=== PATIENT | female | born 1985 | race Caucasian/White ===

== ENCOUNTER 2018-10-15 07:56 | Emergency (ER) | payer OTHER ==
--- OUTSIDE RECORDS SUMMARY | 2018-10-15 08:01 | XMS REPORT ---
:1985 [facility] Address [address] [place] [address] Dr. Miner. [address] [place] [id number] Care Team Providers Name Role Phone Unavailable Unavailable Unavailable Problems This patient has no known problems. Allergies, Adverse Reactions, Alerts This patient has no known allergies or adverse reactions. Medications This patient has no known medications.
[2018-10-15 08:48] LABS: Absolute Lymphocytes (CBC) 1.5 K/uL (0.7-4.9); Absolute Monocytes 0.5 K/uL (0.1-1.3); Absolute Neutrophil 5.3 K/uL (1.8-8.0); Basophils % 0.4 % (0-1.3); Eosinophils % 2.7 % (0-4.4); Hematocrit 42.7 % (36.0-45.0); Lymphocytes % 20.2 % (15.3-44.8); MCH 30.8 pg (27.0-35.0); MCV 88.8 fL (80-100); MPV 8.6 fL (7.6-11.3); Monocytes % 6.1 % (3.3-12.3); RBC Red Blood Cell Count 4.81 M/uL (3.86-4.86)
[2018-10-15 09:11] LABS: Albumin 4.2 g/dL (3.4-5.0); Bilirubin Direct 0.1 mg/dL (0-0.2); Bilirubin Total 0.5 mg/dL (0.2-1.0); Potassium 3.3 mmol/L (3.5-5.1); Protein, Total 8.2 g/dL (6.4-8.2)
--- NOTE | 2018-10-15 09:16 | RAD REPORT ---
EXAM DESCRIPTION: US - Abdomen Exam Limited - 10/15/2018 8:49 am CLINICAL HISTORY: ABD PAIN COMPARISON: No comparisons FINDINGS: The gallbladder demonstrates no gallstones. No pericholecystic fluid or gallbladder wall t hickening. The common bile duct is normal measuring 3 mm. The liver demonstrates no findings of intrahepatic biliary dilatation. IMPRESSION: Unremarkable examination.
[2018-10-15] MEDS ORDERED: POTASSIUM CL SA 10 MEQ TAB PO ONE (09:32)
[2018-10-15] MEDS ORDERED: DICYCLOMINE HCL 10 MG CAP ONE (09:33)
--- NOTE | 2018-10-15 09:34 | EDPHYS ---
Physician Documentation [facility] Name: Niko aGrcia Age: 33 yrs Sex: Female : 1985 Arrival Date: 10/15/2018 Time: 08:00 Bed 7 Private MD: out of town, doctor ED Physician Baldomero Neves HPI: 10/15 09:28 This 33 yrs old Female presents to ER via Ambulatory with complaints of kb Abdominal Cramping. 09:28 The patient presents with abdominal pain in the upper abdomen. Onset: The kb symptoms/episode began/occurred 5 day(s) ago. The symptoms do not radiate. Associated signs and symptoms: none. The symptoms are described as crampy. Modifying factors: The symptoms are alleviated by bland food (toast). the symptoms are aggravated by "heavy food. Severity of pain: At its worst the pain was severe in the emergency department the pain has improved moderately. The patient has not experienced similar symptoms in the past. The patient has not recently seen a physician. Pt reports lower abd cramps since that moved to upper abd on . 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 - Social history:: Smoking status: Patient/guardian denies using tobacco, Patient uses alcohol, occasionally. - Ebola Screening: : Patient negative for fever greater than or equal to 101.5 degrees Fahrenheit, and additional compatible Ebola Virus Disease symptoms Patient denies exposure to infectious person Patient denies travel to an Ebola-affected area in the 21 days before illness onset. ROS: 09:24 Constitutional: Negative for fever, chills, and weight loss, ENT: Negative for injury, kb pain, and discharge, Neck: Negative for injury, pain, and swelling, Cardiovascular: Negative for chest pain, palpitations, and edema, Respiratory: Negative for shortness of breath, cough, wheezing, and pleuritic chest pain, Back: Negative for injury and pain, : Negative for injury, bleeding, discharge, and swelling, MS/Extremity: Negative for injury and deformity, Skin: Negative for injury, rash, and discoloration, Neuro: Negative for headache, weakness, numbness, tingling, and seizure. 09:24 Abdomen/GI: Positive for abdominal pain, nausea, abdominal cramps, Negative for vomiting, diarrhea, constipation, abdominal distension, anorexia. Exam: 09:24 Constitutional: This is a well developed, well nourished patient who is awake, alert, kb and in no acute distress. Head/Face: Normocephalic, atraumatic. Chest/axilla: Normal chest wall appearance and motion. Nontender with no deformity. No lesions are appreciated. Cardiovascular: Regular rate and rhythm with a normal S1 and S2. No gallops, murmurs, or rubs. Normal PMI, no JVD. No pulse deficits. Respiratory: Lungs have equal breath sounds bilaterally, clear to auscultation and percussion. No rales, rhonchi or wheezes noted. No increased work of breathing, no retractions or nasal flaring. Back: No spinal tenderness. No costovertebral tenderness. Full range of motion. Skin: Warm, dry with normal turgor. Normal color with no rashes, no lesions, and no evidence of cellulitis. MS/ Extremity: Pulses equal, no cyanosis. Neurovascular intact. Full, normal range of motion. Neuro: Awake and alert, GCS 15, oriented to person, place, time, and situation. Cranial nerves II-XII grossly intact. Motor strength 5/5 in all extremities. Sensory grossly intact. Cerebellar exam normal. Normal gait. 09:24 Abdomen/GI: Inspection: abdomen appears normal, Bowel sounds: normal, in all quadrants, Palpation: soft, in all quadrants, mild abdominal tenderness, in the right upper quadrant. Vital Signs: 08:06 BP 111 / 78; Pulse 69; Resp 18; Temp 97.5(TE); Pulse Ox 99% on R/A; Weight 68.04 kg; hj Height 5 ft. 4 in. (162.56 cm); Pain 4/10; 08:06 Body Mass Index 25.75 (68.04 kg, 162.56 cm) MDM: 08:08 Patient medically screened. kb 09:28 Data reviewed: vital signs, nurses notes. Data interpreted: Pulse oximetry: on room air kb is 99 %. Interpretation: normal. Counseling: I had a detailed discussion with the patient and/or guardian regarding: the historical points, exam findings, and any diagnostic results supporting the discharge/admit diagnosis, lab results, radiology results, the need for outpatient follow up, a family practitioner, a overnight cashier, to return to the emergency department if symptoms worsen or persist or if there are any questions or concerns that arise at home. 10/15 08:21 Order name: Basic Metabolic Panel; Complete Time: 09:14 kb 10/15 08:21 Order name: CBC with Diff; Complete Time: 08:51 kb 10/15 08:21 Order name: Hepatic Function; Complete Time: 09:14 kb 10/15 08:21 Order name: Lipase; Complete Time: 09:14 kb 10/15 09:10 Order name: Urine Dipstick--Ancillary (enter results) eb 10/15 09:10 Order name: Urine --Ancillary (enter results) eb 10/15 08:21 Order name: IV Saline Lock; Complete Time: 08:37 kb 10/15 08:21 Order name: Labs collected and sent; Complete Time: 08:37 kb 10/15 08:21 Order name: US Abdomen Limited; Complete Time: 09:19 kb 10/15 08:21 Order name: Urine Dipstick-Ancillary (obtain specimen); Complete Time: 09:35 kb Administered Medications: 09:32 Drug: Bentyl 20 mg Route: PO; sg 10:05 Follow up: Response: No adverse reaction; Marked relief of symptoms sg 09:32 Drug: Potassium Chloride 20 mEq Route: PO; sg 10:05 Follow up: Response: No adverse reaction sg Disposition: 16:57 Co-signature as Attending Physician, Baldomero Neves MD. rn Disposition: 10/15/18 09:32 Discharged to Home. Impression: Upper abdominal pain, unspecified. - Condition is Stable. - Discharge Instructions: Abdominal Pain, Adult, [id number]. - Prescriptions for Bentyl 20 mg Oral Tablet - take 1 tablet by ORAL route every 6 hours As needed; 20 tablet. - Medication Reconciliation Form, Thank You Letter, Antibiotic Education, Prescription Opioid Use, Work release form form. - Follow up: Private Physician; When: 2 - 3 days; Reason: Recheck today's complaints, Continuance of care, Re-evaluation by your physician. Follow up: Emergency Department; When: As needed; Reason: Worsening of condition. Signatures: Dispatcher [employer] EDMS Louisa Mendoza, SOHAIL VERGARA-Vincent Duvall RN RN Baldomero Flaherty MD MD rn Joaquin, Henry, RN RN Corrections: (The following items were deleted from the chart) 09:55 09:32 10/15/2018 09:32 Discharged to Home. Impression: Upper abdominal pain, sg unspecified. Condition is Stable. Forms are Medication Reconciliation Form, Thank You Letter, Antibiotic Education, Prescription Opioid Use. Follow up: Private Physician; When: 2 - 3 days; Reason: Recheck today's complaints, Continuance of care, Re-evaluation by your physician. Follow up: Emergency Department; When: As needed; Reason: Worsening of condition. kb
--- NOTE | 2018-10-15 09:34 | ER ---
Nurse's Notes [facility] Name: Niko Garcia Age: 33 yrs Sex: Female : 1985 Arrival Date: 10/15/2018 Time: 08:00 Bed 7 Private MD: out of town, doctor Diagnosis: Upper abdominal pain, unspecified Presentation: 10/15 08:01 Presenting complaint: Patient states: "i have the worst abd cramps in my life (started hj at lower abdomen and moves up the epigastric area) since , the pain is more intense that labor pains when the actual cramping happens, current pain is 4/10":, reports vomiting from the pain; reports constipation; denies fever and chills;. Transition of care: patient was not received from another setting of care. Onset of symptoms was October 15, 2018. Risk Assessment: Do you want to hurt yourself or someone else? Patient reports no desire to harm self or others. Initial Sepsis Screen: Does the patient meet any 2 criteria? No. Patient's initial sepsis screen is negative. Does the patient have a suspected source of infection? No. Patient's initial sepsis screen is negative. Care prior to arrival: None. 08:01 Method Of Arrival: Ambulatory 08:01 Acuity: HENNY 3 hj Triage Assessment: 08:05 General: Appears in no apparent distress. uncomfortable, Behavior is calm, cooperative, hj appropriate for age. Pain: Complains of pain in abdomen. GI: Reports vomiting. 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 - Social history:: Smoking status: Patient/guardian denies using tobacco, Patient uses alcohol, occasionally. - Ebola Screening: : Patient negative for fever greater than or equal to 101.5 degrees Fahrenheit, and additional compatible Ebola Virus Disease symptoms Patient denies exposure to infectious person Patient denies travel to an Ebola-affected area in the 21 days before illness onset. Screenin:06 Abuse screen: Denies threats or abuse. Denies injuries from another. Nutritional hj screening: No deficits noted. Tuberculosis screening: No symptoms or risk factors identified. Fall Risk None identified. Assessment: 08:06 GI: Bowel sounds present X 4 quads. Abd is soft and non tender. hj 08:30 Reassessment: Patient appears in no apparent distress at this time. Patient and/or sg family updated on plan of care and expected duration. Pain level reassessed. Patient is alert, oriented x 3, equal unlabored respirations, skin warm/dry/pink. Vital Signs: 08:06 BP 111 / 78; Pulse 69; Resp 18; Temp 97.5(TE); Pulse Ox 99% on R/A; Weight 68.04 kg; hj Height 5 ft. 4 in. (162.56 cm); Pain 4/10; 08:06 Body Mass Index 25.75 (68.04 kg, 162.56 cm) hj ED Course: 08:00 Patient arrived in ED. sb2 08:00 out of town, doctor is Private Physician. sb2 08:01 Louisa Mendoza FNP-C is PHCP. kb 08:01 Baldomero Neves MD is Attending Physician. kb 08:04 Triage completed. hj 08:06 Arm band placed on left wrist. hj 08:08 Patient has correct armband on for positive identification. Placed in gown. Bed in low hj position. Call light in reach. Side rails up X 1. Adult w/ patient. 08:09 Vincent Fernandez, RN is Primary Nurse. sg 08:35 Initial lab(s) drawn, by va, sent to lab. Inserted saline lock: 22 gauge in right mh5 antecubital area, using aseptic technique. Blood collected. 08:36 Ultrasound completed. Other: portable/at bedside. hr 08:36 Warm blanket given. Pulse ox on. NIBP on. mh5 08:37 Basic Metabolic Panel Sent. mh5 08:37 CBC with Diff Sent. mh5 08:37 Hepatic Function Sent. mh5 08:37 Lipase Sent. mh5 08:50 US Abdomen Limited In Process Unspecified. EDMS 09:50 No provider procedures requiring assistance completed. IV discontinued, intact, sg bleeding controlled, No redness/swelling at site. Pressure dressing applied. Administered Medications: 09:32 Drug: Bentyl 20 mg Route: PO; sg 10:05 Follow up: Response: No adverse reaction; Marked relief of symptoms sg 09:32 Drug: Potassium Chloride 20 mEq Route: PO; sg 10:05 Follow up: Response: No adverse reaction sg Outcome: 09:32 Discharge ordered by . karel 09:53 Discharged to home ambulatory, with family. sg 09:53 Condition: good 09:53 Discharge instructions given to patient, Instructed on discharge instructions, follow up and referral plans. safety practices, Demonstrated understanding of instructions, follow-up care, Prescriptions given X 1. 09:55 Patient left the ED. sg Signatures: Dispatcher [employer] EDMS Louisa Mendoza, ANABELAC JAI-Vincent Duvall RN RN Quyen Farrell Henry, RN RN hj Martinez, [facility] Trent 2 Corrections: (The following items were deleted from the chart) 08:08 08:06 Pulse 69bpm; Resp 18bpm; Pulse Ox 99% RA; Temp 97.5F Temporal; 68.04 kg; Height 5 hj ft. 4 in.; BMI: 25.7; Pain 4/10; hj
[2018-10-15 10:22] VITALS: BP 111/78; TEMP 97.5; O2SAT 99
[2018-10-15 12:54] LABS: Urine Blood 2+ (NEG); Urine Glucose NEGATIVE (NEG); Urine Protein TRACE (NEG); Urine Specific Gravity 1.025 (1.005-1.030); Urine pH 6.5 (5.0-7.0)
== END 2018-10-15 09:55 | disposition home or self-care (01) ==
LOC: ER 07:56
DX: R10.10 Upper abdominal pain, unspecified (principal); Z88.1 Allergy status to other antibiotic agents
CPT/HCPCS: 36415; 76705; 80048; 80076; 81003; 81025; 83690; 85025; 99284

== ENCOUNTER 2018-12-23 15:30 | Observation (INO) | payer OTHER ==
--- OUTSIDE RECORDS SUMMARY | 2018-12-23 15:33 | XMS REPORT ---
:1985 [facility] Address [address] [place] [address] Dr. Miner. [address] [place] [id number] Care Team Providers Name Role Phone Unavailable Unavailable Unavailable Problems This patient has no known problems. Allergies, Adverse Reactions, Alerts This patient has no known allergies or adverse reactions. Medications This patient has no known medications.
[2018-12-23 16:36] LABS: Urine Blood 2+ (NEG); Urine Glucose NEGATIVE (NEG); Urine Protein TRACE (NEG); Urine Specific Gravity 1.025 (1.005-1.030)
[2018-12-23] MEDS ORDERED: ONDANSETRON 4 MG/2 ML VIAL ONE (16:39)
[2018-12-23] MEDS ORDERED: FENTANYL CITR 100 MCG/2 ML ONE ×2 (16:39→17:26)
[2018-12-23 16:47] LABS: Absolute Lymphocytes (CBC) 0.9 K/uL (0.7-4.9); Absolute Monocytes 0.6 K/uL (0.1-1.3); Absolute Neutrophil 9.4 K/uL (1.8-8.0); Basophils % 0.3 % (0-1.3); Eosinophils % 1.1 % (0-4.4); Hematocrit 40.4 % (36.0-45.0); Lymphocytes % 7.8 % (15.3-44.8); MPV 8.7 fL (7.6-11.3); Monocytes % 5.8 % (3.3-12.3); RBC Red Blood Cell Count 4.52 M/uL (3.86-4.86)
[2018-12-23 17:08] LABS: ALT/SGPT 30 U/L (12-78); AST/SGOT 23 U/L (15-37); Albumin 3.7 g/dL (3.4-5.0); Alkaline Phosphatase 65 U/L (45-117); BUN Blood Urea Nitrogen 21 mg/dL (7-18); Bicarbonate 28 mmol/L (21-32); Bilirubin Direct < 0.1 mg/dL (0-0.2); Bilirubin Total 0.3 mg/dL (0.2-1.0); Glucose Level 98 mg/dL (74-106); Lipase 114 U/L (73-393); Potassium 3.7 mmol/L (3.5-5.1); Protein, Total 7.2 g/dL (6.4-8.2); Sodium Level 138 mmol/L (136-145)
--- NOTE | 2018-12-23 17:15 | RAD REPORT ---
EXAM DESCRIPTION: CT - Stone Protocol - 12/23/2018 4:57 pm CLINICAL HISTORY: Abdominal pain. Left flank pain COMPARISON: None. TECHNIQUE: Computed axial tomography of the abdomen pelvis was obtained without oral or IV contrast. Lack of IV and oral contrast limits evaluation of solid organs, bowel, and vessels. Coronal reformat deja images were obtained and reviewed. All CT scans are performed using dose optimization technique as appropriate and may include automated exposure control or mA/KV adjustment according to patient size. FINDINGS: A renal calculus is not seen. Mild to moderate left hydronephrosis. 9 millimeter calculus proximal left ureter Hounsfield unit 787 16 millimeter low-density areas present within right lobe of the liver. Spleen, pancreas and adrenals appear grossly normal There is no evidence of diverticulitis. The appendix appears normal IMPRESSION: 9 millimeter calculus proximal left ureter with mild to moderate left hydronephrosis 16 millimeter low-density area within the right lobe of liver. Nonemergent liver ultrasound recommended
--- NOTE | 2018-12-23 17:49 | ER ---
Nurse's Notes [facility] Name: Niko Garcia Age: 33 yrs Sex: Female : 1985 Arrival Date: 12/23/2018 Time: 15:33 Bed 25 Private MD: Diagnosis: Hydronephrosis with renal and ureteral calculous obstruction Presentation: 12/23 15:43 Presenting complaint: Patient states: At 0930 I started with a really bad pain in my la1 left flank, pt reports nausea. Transition of care: patient was not received from another setting of care. Onset of symptoms was December 23, 2018. Risk Assessment: Do you want to hurt yourself or someone else? Patient reports no desire to harm self or others. Initial Sepsis Screen: Does the patient meet any 2 criteria? No. Patient's initial sepsis screen is negative. Does the patient have a suspected source of infection? No. Patient's initial sepsis screen is negative. Care prior to arrival: None. 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 - Social history:: Smoking status: unknown. - Ebola Screening: : No symptoms or risks identified at this time. Screenin:03 Abuse screen: Denies threats or abuse. Nutritional screening: No deficits noted. tl3 Tuberculosis screening: No symptoms or risk factors identified. Fall Risk None identified. Assessment: 16:03 General: Appears distressed, uncomfortable, slender, well groomed, well developed, well tl3 nourished, Behavior is cooperative, appropriate for age, anxious. Pain: Complains of pain in suprapubic area, posterior aspect of left lateral abdomen, anterior aspect of left lateral abdomen and left lower quadrant. Neuro: Level of Consciousness is awake, alert, obeys commands, Oriented to person, place, time, situation, Appropriate for age. Cardiovascular: Patient's skin is warm and dry. Respiratory: Airway is patent Respiratory effort is even, unlabored, Respiratory pattern is regular, symmetrical. GI: Abdomen is tender to palpation X 4 quads. : Urine is clear. : EENT: No signs and/or symptoms were reported regarding the EENT system. Derm: No signs and/or symptoms reported regarding the dermatologic system. Musculoskeletal: No signs and/or symptoms reported regarding the musculoskeletal system. 16:07 Reassessment: patient has hx of left ovary issues, is scheduled for hysterectomy in 2 tl3 weeks. reports that pain started lower left abdomen then moved around to left flank. 17:57 Reassessment: Patient and/or family updated on plan of care and expected duration. Pain tl3 level reassessed. Patient is alert, oriented x 3, equal unlabored respirations, skin warm/dry/pink. pt returned from CT in pain, new orders received. 19:18 GI: Bowel sounds present X 4 quads. tl3 Vital Signs: 15:43 Pulse 97; Resp 18; Temp 98.0(TE); Pulse Ox 98% ; Weight 72.57 kg; Height 5 ft. 4 in. la1 (162.56 cm); Pain 8/10; 15:44 BP 119 / 66; la1 17:57 BP 120 / 75; Pulse 74; Resp 18; Pulse Ox 100% on R/A; tl3 15:43 Body Mass Index 27.46 (72.57 kg, 162.56 cm) la1 ED Course: 15:33 Patient arrived in ED. rg4 15:43 Triage completed. la1 15:43 Arm band placed on right wrist. la1 15:53 [facility] jr8 15:53 Chapito Villanueva MD is Attending Physician. jr8 15:56 Shana Burgess, MULUGETA is Primary Nurse. tl3 16:03 Patient has correct armband on for positive identification. Bed in low position. Call tl3 light in reach. Side rails up X 1. Pulse ox on. NIBP on. 16:03 No provider procedures requiring assistance completed. tl3 16:42 Inserted saline lock: 20 gauge in left antecubital area, using aseptic technique. Blood tl3 collected. 16:[address] mw3 16:58 CT Stone Protocol In Process Unspecified. EDMS 17:47 Niharika Shields MD is Hospitalizing Provider. jr8 17:50 Nicole Garza MD is Hospitalizing Provider. jr8 19:19 Patient admitted, IV remains in place. tl3 Administered Medications: 16:41 Drug: fentaNYL (PF) 50 mcg Route: IVP; Infused Over: 1 mins; Site: left antecubital; tl3 18:01 Follow up: Response: No adverse reaction; Marked relief of symptoms tl3 16:41 Drug: Zofran 4 mg Route: IVP; Infused Over: 2 mins; Site: left antecubital; tl3 18:01 Follow up: Response: No adverse reaction tl3 17:40 Drug: fentaNYL (PF) 50 mcg Route: IVP; Infused Over: 2 mins; Site: left antecubital; tl3 18:18 Follow up: Response: No adverse reaction; Marked relief of symptoms tl3 18:17 Drug: TORadol 30 mg Route: IVP; Infused Over: 2 mins; Site: left antecubital; tl3 19:18 Follow up: Response: No adverse reaction tl3 18:24 Drug: NS 0.9% 1000 ml Route: IV; Rate: 125 ml/hr; Site: left antecubital; Delivery: tl3 Primary tubing; 19:18 Follow up: IV Status: Infusion continued upon admission tl3 Outcome: 17:48 Decision to Hospitalize by Provider. jr8 19:19 Admitted to OR accompanied by nurse, via stretcher, with chart. tl3 19:19 Condition: stable 19:19 Instructed on the need for admit. 19:20 Patient left the ED. tl3 Signatures: Dispatcher [employer] EDMS Jake Fry PA PA jr8 Terrence Tirado RN RN [email or web address] Mahnaz Reyes4 Shana Burgess RN RN tl3 Dasha Mandel 3
--- NOTE | 2018-12-23 17:49 | EDPHYS ---
Physician Documentation [facility] Name: Niko Garcia Age: 33 yrs Sex: Female : 1985 Arrival Date: 12/23/2018 Time: 15:33 Bed 25 Private MD: ED Physician Chapito Villanueva HPI: 12/23 16:37 This 33 yrs old Female presents to ER via Ambulatory with complaints of jr8 Possible Kidney Stone. 16:37 The patient complains of pain in the left flank. The pain does not radiate. Onset: The jr8 symptoms/episode began/occurred acutely, today. Modifying factors: The symptoms are alleviated by nothing. the symptoms are aggravated by movement. Associated signs and symptoms: The patient has no apparent associated signs or symptoms. Severity of pain: At its worst the pain was moderate in the emergency department the pain is unchanged. The patient has not experienced similar symptoms in the past. The patient has not recently seen a physician. 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 - Social history:: Smoking status: unknown. - Ebola Screening: : No symptoms or risks identified at this time. ROS: 16:37 Eyes: Negative for injury, pain, redness, and discharge, ENT: Negative for injury, jr8 pain, and discharge, Neck: Negative for injury, pain, and swelling, Cardiovascular: Negative for chest pain, palpitations, and edema, Respiratory: Negative for shortness of breath, cough, wheezing, and pleuritic chest pain, Abdomen/GI: Negative for abdominal pain, nausea, vomiting, diarrhea, and constipation, MS/Extremity: Negative for injury and deformity, Skin: Negative for injury, rash, and discoloration, Neuro: Negative for headache, weakness, numbness, tingling, and seizure. 16:37 Back: Positive for pain at rest, pain with movement, flank pain, on the left. Exam: 16:37 Eyes: Pupils equal round and reactive to light, extra-ocular motions intact. Lids and jr8 lashes normal. Conjunctiva and sclera are non-icteric and not injected. Cornea within normal limits. Periorbital areas with no swelling, redness, or edema. ENT: Nares patent. No nasal discharge, no septal abnormalities noted. Tympanic membranes are normal and external auditory canals are clear. Oropharynx with no redness, swelling, or masses, exudates, or evidence of obstruction, uvula midline. Mucous membranes moist. Neck: Trachea midline, no thyromegaly or masses palpated, and no cervical lymphadenopathy. Supple, full range of motion without nuchal rigidity, or vertebral point tenderness. No Meningismus. Cardiovascular: Regular rate and rhythm with a normal S1 and S2. No gallops, murmurs, or rubs. Normal PMI, no JVD. No pulse deficits. Respiratory: Lungs have equal breath sounds bilaterally, clear to auscultation and percussion. No rales, rhonchi or wheezes noted. No increased work of breathing, no retractions or nasal flaring. Abdomen/GI: Soft, non-tender, with normal bowel sounds. No distension or tympany. No guarding or rebound. No evidence of tenderness throughout. Skin: Warm, dry with normal turgor. Normal color with no rashes, no lesions, and no evidence of cellulitis. MS/ Extremity: Pulses equal, no cyanosis. Neurovascular intact. Full, normal range of motion. Neuro: Awake and alert, GCS 15, oriented to person, place, time, and situation. Cranial nerves II-XII grossly intact. Motor strength 5/5 in all extremities. Sensory grossly intact. Cerebellar exam normal. Normal gait. 16:37 Back: pain, that is mild, of the left flank and left mid back, ROM is normal, normal spinal alignment noted, CVA tenderness, is absent. Vital Signs: 15:43 Pulse 97; Resp 18; Temp 98.0(TE); Pulse Ox 98% ; Weight 72.57 kg; Height 5 ft. 4 in. la1 (162.56 cm); Pain 8/10; 15:44 BP 119 / 66; la1 17:57 BP 120 / 75; Pulse 74; Resp 18; Pulse Ox 100% on R/A; tl3 15:43 Body Mass Index 27.46 (72.57 kg, 162.56 cm) la1 MDM: 15:53 Patient medically screened. jr8 17:36 Data reviewed: vital signs, nurses notes, lab test result(s), radiologic studies, CT jr8 scan, and as a result, I will admit patient. Data interpreted: Pulse oximetry: on room air is 98 %. Interpretation: normal. Counseling: I had a detailed discussion with the patient and/or guardian regarding: the historical points, exam findings, and any diagnostic results supporting the discharge/admit diagnosis, lab results, radiology results, the need for further work-up and treatment in the hospital. Physician consultation: Rudi Nino MD was called at 17:36, was contacted at 17:36, regarding consult, patient's condition, and will see patient would like admission per Dr. Nicole Garza MD. 12/23 16:15 Order name: Urine Dipstick--Ancillary (enter results); Complete Time: 16:37 ms 12/23 16:15 Order name: Urine --Ancillary (enter results); Complete Time: 16:37 ms 12/23 16:21 Order name: Basic Metabolic Panel; Complete Time: 17:30 12/23 16:21 Order name: CBC with Diff; Complete Time: 16:56 12/23 16:21 Order name: Creatinine for Radiology; Complete Time: 17:30 12/23 16:21 Order name: Hepatic Function; Complete Time: 17:30 12/23 16:21 Order name: Lipase; Complete Time: 17:30 12/23 16:25 Order name: CT Stone Protocol; Complete Time: 17:30 12/23 18:02 Order name: CONS Physician Consult; Complete Time: 18:18 [facility] 12/23 15:53 Order name: Urine Test (obtain specimen); Complete Time: 16:16 12/23 15:53 Order name: Urine Dipstick-Ancillary (obtain specimen); Complete Time: 16:16 12/23 16:21 Order name: IV Saline Lock; Complete Time: 16:39 12/23 16:21 Order name: Labs collected and sent; Complete Time: 16:39 jr8 Administered Medications: 16:41 Drug: fentaNYL (PF) 50 mcg Route: IVP; Infused Over: 1 mins; Site: left antecubital; tl3 18:01 Follow up: Response: No adverse reaction; Marked relief of symptoms tl3 16:41 Drug: Zofran 4 mg Route: IVP; Infused Over: 2 mins; Site: left antecubital; tl3 18:01 Follow up: Response: No adverse reaction tl3 17:40 Drug: fentaNYL (PF) 50 mcg Route: IVP; Infused Over: 2 mins; Site: left antecubital; tl3 18:18 Follow up: Response: No adverse reaction; Marked relief of symptoms tl3 18:17 Drug: TORadol 30 mg Route: IVP; Infused Over: 2 mins; Site: left antecubital; tl3 19:18 Follow up: Response: No adverse reaction tl3 18:24 Drug: NS 0.9% 1000 ml Route: IV; Rate: 125 ml/hr; Site: left antecubital; Delivery: tl3 Primary tubing; 19:18 Follow up: IV Status: Infusion continued upon admission tl3 Disposition: 12/24 16:50 Co-signature as Attending Physician, Chapito Villanueva MD. Disposition: 12/23/18 17:48 Hospitalization ordered by Nicole Garza for Observation. Preliminary diagnosis is Hydronephrosis with renal and ureteral calculous obstruction. - Bed requested for Telemetry/MedSurg (observation). - Status is Observation. tl3 - Condition is Stable. - Problem is new. - Symptoms have improved. UTI on Admission? No Signatures: Dispatcher [employer] EDLeann Roach RN RN iw Roszak, Josh, PA PA jr8 Terrence Tirado RN RN la1 Starr, Gregory, MD MD Shana Burgess RN RN tl3 Corrections: (The following items were deleted from the chart) 12/23 17:49 17:36 Physician consultation: Rudi Nino MD was called at 17:36, was contacted at jr8 17:36, regarding consult, patient's condition, and will see patient would like admission per Dr. Niharika Shields MD jr8 17:50 17:48 Hospitalization Ordered by Niharika Shields MD for Observation. Preliminary jr8 diagnosis is Hydronephrosis with renal and ureteral calculous obstruction. Bed requested for Telemetry/MedSurg (observation). Status is Observation. Condition is Stable. Problem is new. Symptoms have improved. UTI on Admission? No. jr8 18:50 17:50 12/23/2018 17:48 Hospitalization Ordered by Nicole Garza MD for Observation. iw Preliminary diagnosis is Hydronephrosis with renal and ureteral calculous obstruction. Bed requested for Telemetry/MedSurg (observation). Status is Observation. Condition is Stable. Problem is new. Symptoms have improved. UTI on Admission? No. jr8 19:20 18:50 12/23/2018 17:48 Hospitalization Ordered by Nicole Garza MD for Observation. tl3 Preliminary diagnosis is Hydronephrosis with renal and ureteral calculous obstruction. Bed requested for Telemetry/MedSurg (observation). Status is Observation. Condition is Stable. Problem is new. Symptoms have improved. UTI on Admission? No. iw
[2018-12-23] MEDS ORDERED: KETOROLAC 30 MG/ML INJ ONE ×2 (18:23→20:22)
[2018-12-23] MEDS ORDERED: NA CHLORIDE 0.9% 1,000 ML ONE (18:31)
--- NOTE | 2018-12-23 18:37 | P.HP ---
Certification for Inpatient Patient admitted to: Observation With expected LOS: <2 Midnights Practitioner: I am a practitioner with admitting privileges, knowledge of patient current condition, hospital course, and medical plan of care. Services: Services provided to patient in accordance with Admission requirements found in Title 42 Section 412.3 of the Code of Federal Regulations Patient History Date of Service: 12/23/18 Reason for admission: Left flank pain History of Present Illness: This is a 33-year-old female with history of adenomyosis and benign tachycardia admitted for left flank pain. Per patient, this morning she started having sharp 8 9/10 left lower quadrant abdominal pain. Initially she thought this was read no myosis pain but then the pain started radiating to the back. It was worsened with movement. No alleviating factors. Associated with nausea and dysuria. Denies any chest pain or shortness breath or vomiting, headache, dizziness, syncopal/syncopal episodes. She came to the ER. In the ER, she had a WBC count of 11.1. CT of the abdomen showed a 9 mm calculus in the proximal left ureter with mild to moderate left hydronephrosis. She received IV pain medication with fentanyl x2 and Toradol x1. At the time of my exam, she was alert oriented x3, in mild to moderate distress secondary to the pain she was hemodynamically stable. Allergies digoxin Allergy (Unverified 07/23/15 09:06) Unknown levofloxacin [From Levaquin] Allergy (Unverified 07/23/15 09:06) Unknown NKDA Allergy (Uncoded 03/27/14 23:05) Unknown No Known Allergies Allergy (Uncoded 11/27/14 22:01) Unknown - Past Medical/Surgical History Diabetic: No -: Adenomyomsis -: Benign tachycardia Review of Systems 10-point ROS is otherwise unremarkable Physical Examination - Physical Exam General: Alert, In no apparent distress, Oriented x3 HEENT: Atraumatic, PERRLA, Mucous membr. moist/pink, EOMI, Sclerae nonicteric Neck: Supple, 2+ carotid pulse no bruit, No LAD, Without JVD or thyroid abnormality Respiratory: Clear to auscultation bilaterally, Normal air movement Cardiovascular: Regular rate/rhythm, Normal S1 S2 Gastrointestinal: Normal bowel sounds, Tenderness Musculoskeletal: Other (Positive CVA tenderness on the left side) Integumentary: No rashes Neurological: Normal gait, Normal speech, Normal strength at 5/5 x4 extr, Normal tone, Normal affect Lymphatics: No axilla or inguinal lymphadenopathy - Studies Laboratory Data (last 24 hrs) 12/23/18 16:30: Creatinine 1.20 12/23/18 16:30: WBC 11.1 H, Hgb 13.4, Hct 40.4, Plt Count 203 12/23/18 16:30: Sodium 138, Potassium 3.7, BUN 21 H, Creatinine 1.19, Glucose 98 , Total Bilirubin 0.3, AST 23, ALT 30, Alkaline Phosphatase 65, Lipase 114 Assessment and Plan - Problems (Diagnosis) (1) Left ureteral calculus Current Visit: Yes Status: Acute (2) Hydronephrosis Current Visit: Yes Status: Acute (3) Asymptomatic PVCs Current Visit: Yes Status: Chronic (4) Uterus, adenomyosis Current Visit: Yes Status: Chronic - Plan This is a 33-year-old female with: Left ureter calculus Left hydronephrosis IV fluids, IV pain medicine for pain control. Keep NPO Dr. Nino consulted, aware of the patient. She is pending cystoscopy with stent placement tonight. History of adenoma Stable Continue outpatient follow up. PVCs, asymptomatic, chronic Stable. Will restart metoprolol 25 mg b.i.d. (home dosage) tomorrow. DVT prophylaxis: None GI prophylaxis: None Diet: NPO Disposition: Admit to floor with tele. Pending the cystoscopy with stent placement. Monitor overnight, if stable will likely discharge home in the morning. - Advance Directives Does patient have a Living Will: No Does patient have a Durable POA for Healthcare: No Time Spent Managing Pts Care (In Minutes): 55
[2018-12-23] MEDS ORDERED: ONDANSETRON 4 MG/2 ML VIAL IV PRN (19:10)
[2018-12-23] MEDS: NA CHLORIDE 0.9% 1,000 ML IV SCH ×2 (19:10→23:53)
[2018-12-23] MEDS ORDERED: MORPHINE 2 MG/ML SYR IV PRN (19:10)
[2018-12-23] MEDS ORDERED: GENTAMICIN 100 MG/100 ML BAG 100 ML IV ONE (19:15)
[2018-12-23] MEDS ORDERED: PROPOFOL 200 MG/20 ML VIAL IV ONE (19:22)
--- NOTE | 2018-12-23 19:32 | CON ---
Date of Consultation: 12/23/2018 History Of Present Illness: A 33-year-old lady with history of adenomyosis and benign tachycardia, presented with left flank pain started at 9 a.m. this morning. She normally is in the dehydrated state, does not drink lots of water. This is her 1st kidney stone. Came to the emergency room. CAT scan showed a 9-mm calculus in the proximal left ureter with mild hydronephrosis. Her pain was difficult to control in the ER and so we decided to admit and offer her a stent placement. She has been n.p.o. since yesterday, drank some water a few hours ago. She said pain was worsened with movement. Pain was 9/ 10 in the left lower quadrant. She denies shortness of breath, headache, dizziness, any fainting episodes. Her white count on admission was 11.1. Allergies: DIGOXIN ALLERGY, LEVAQUIN ALLERGY. Past Medical History: Adenomyosis, benign tachycardia. Social History And Family History: All noncontributory. Review of Systems: A 10-point review of systems is otherwise unremarkable. Physical Examination: Vital Signs: BP 120/75, pulse 74, respirations 18, sats 100% on room air. General Appearance: The patient is well developed, no acute distress. Her is present by the bedside. HEENT: Atraumatic, normocephalic. Neck: Supple. Respiratory: Clear. Cardiovascular: S1 and S2. Gastrointestinal: Normal bowel sounds. Musculoskeletal: Negative. Skin: No rashes. Neurologic: Normal gait. Normal speech. Lymphatics: Negative. Laboratory Studies: UA shows pH 6.0, specific gravity 1.025, blood 2+, nitrite negative, esterase negative. test negative. Chemistry; sodium 138, potassium 3.7, chloride 108, carbon dioxide 28, BUN 21, creatinine 1.2, GFR 52, glucose 98, calcium 8.8. Hematology; white count 11.1, H and H 13 and 40, platelet count 203. Assessment: A 9-mm stone, left proximal ureter. Plan: The patient was given all the general information, alternatives, and risks. The patient was coherent. The consent was voluntary for cysto stent placement today. Follow up next week for an ESWL. She also said she is about to get a hysterectomy at [facility] for the adenomyosis in 2 weeks also, so we will see if I can be coordinated somehow. ILEANA/MARSHALL Voice ID: [id number] Report ID: [id number] OSMANI
--- NOTE | 2018-12-23 19:55 | RAD REPORT ---
EXAM DESCRIPTION: RAD - Urethrocystogrphy Retrograde - 12/23/2018 7:41 pm CLINICAL HISTORY: ICD N 20.0 FINDINGS: Thirteen fluoroscopic spot images obtained. Fluoroscopy time 0.56 minutes Left ureter was cannulated and contrast administered. Subsequently a left ureteral stent was placed. Examination was performed by
[2018-12-23] MEDS: HYDROMORPHONE HCL 2 MG/ML inj ONE ×2 (20:17→20:22)
[2018-12-23 21:28] VITALS: O2SAT 98
[2018-12-23 22:01] VITALS: BMI 26.4
[2018-12-24 00:45] LABS: Urine Appearance CLOUDY; Urine Bilirubin NEGATIVE (NEG); Urine Blood 3+ (NEG); Urine Color RED; Urine Glucose NEGATIVE (NEG); Urine Protein 2+ (NEG); Urine Specific Gravity 1.025 (1.005-1.030); Urine Urobilinogen 0.2 mg/dL (0.2-1.0)
[2018-12-24 00:46] LABS: Urine Microscopic Reflex ORDER UMIC
[2018-12-24 00:58] LABS: Urine RBC >50 /HPF (NONE SEEN)
[2018-12-24 00:59] LABS: Urine Bacteria <20 /HPF (<20)
[2018-12-24 01:00] LABS: Urine Culture Reflex Order REFLEXED
--- NOTE | 2018-12-24 03:24 | OP ---
Surgeon: Rudi Nino MD Anesthesiologist: Dr. Collier. Preoperative Diagnosis: A 9 mm left upper ureter stone. Postoperative Diagnosis: A 9 mm stone by L4 on the left. Procedure Performed: Cystoscopy; left retrograde pyelogram; insertion of double -J stent 6 x 28 cm, string left in the vagina. Anesthesia: General. Ebl: Minimal. Replacement: See record. Path Specimen: None. Complication: The stone was very impacted at the L4 area and difficult to pass the stent by, but the stone was not visualized on the fluoroscopy. We will need a KUB to determine the final visibility. The Hounsfield unit was [address] scan. Indication For Procedure: A pleasant 33-year-old female who developed left renal colic today with intractable pain in the emergency room and a CAT scan revealing a 9 mm calculus in the proximal left ureter with Hounsfield unit 787. The patient was given all the general information, alternatives, and risks. The patient was not coerced. The patient was coherent and competent and wishes to proceed with the stent. Interestingly, she has a surgery scheduled for 2 weeks' time for hysterectomy. Description Of Procedure: The patient was properly identified, taken to the operative room, placed in a supine lithotomy position. She received gentamicin antibiotics preoperatively. The area was prepped and draped. We entered the bladder with a 21-Eritrean obturator and visualized the entire bladder mucosa. No lesions were seen. No abnormalities were seen. Both orifices were in their normal anatomical position. We performed a left retrograde pyelogram on the left using 5 Fr open ended catheter which helped to visualized in the ureter up to the level of L4 where the dye seemed to stop, with further pressure the dye was able to get into the left renal pelvis and calices. We then manipulated a guidewire by this area and measured the ureter by passing up the 5-Eritrean ureteral catheter, measured to be about 28 cm from renal pelvis to the bladder and then we went ahead and switched to the double-J stent placing a 6-Eritrean x 28 cm stent. The string was tied proximally to the stent and then once the stent was in place after some difficulty manipulating by the stone, we cut the string and placed the end at the vagina. Bladder was drained. The patient was awakened and went to recovery room in stable condition. ILEANA/MARSHALL Voice ID: [id number] Report ID: [id number] MTDD
[2018-12-24] MEDS: NA CHLORIDE 0.9% 1,000 ML IV SCH (05:10)
[2018-12-24 05:31] LABS: Absolute Lymphocytes (CBC) 1.5 K/uL (0.7-4.9); Absolute Monocytes 0.7 K/uL (0.1-1.3); Absolute Neutrophil 8.9 K/uL (1.8-8.0); Basophils % 0.2 % (0-1.3); Eosinophils % 1.1 % (0-4.4); Hematocrit 37.3 % (36.0-45.0); Monocytes % 6.1 % (3.3-12.3); RBC Red Blood Cell Count 4.19 M/uL (3.86-4.86)
[2018-12-24 05:45] LABS: Albumin 3.1 g/dL (3.4-5.0); Bilirubin Total 0.5 mg/dL (0.2-1.0); Potassium 4.2 mmol/L (3.5-5.1)
--- NOTE | 2018-12-24 08:10 | RAD REPORT ---
EXAM DESCRIPTION: RAD - Abdomen 1 View (KUB) - 12/24/2018 7:45 am CLINICAL HISTORY: ICD N 20.0 FINDINGS: The bowel gas pattern is unremarkable. A left ureteral stent has been placed. A 9 millimeter calculus lies adjacent to left L3 transverse pr ocess within the proximal left ureter.
[2018-12-24] MEDS ORDERED: TRAMADOL HCL 50 MG TAB PO PRN (10:01)
--- NOTE | 2018-12-24 11:29 | PN ---
Subjective: The patient is sleeping. Objective: VITAL SIGNS: Temperature 97.4, pulse rate 71, respiratory rate 18, BP 106/60, sats 100%. Pain level was 2 from the stent. Assessment: Status post stent placement, postop day 1. Plan: Obtain KUB today. Check for stone. Check stent placement. The stone was not very difficult to see on the fluoroscopy last night. If the stone can be seen by KUB, she will be an ESWL candidate . If not, then she will be ureteroscopy and laser lithotripsy next week. The patient can follow up in my office on Monday. Prescriptions were written and nurses orders in the computer. ILEANA/MARSHALL Voice ID: [id number] Report ID: [id number]
--- NOTE | 2018-12-24 11:56 | P.SSS ---
Patient History Date of Service: 12/24/18 Reason for admission: Left flank pain History of Present Illness: This is a 33-year-old female with history of adenomyosis and benign tachycardia admitted for left flank pain. Per patient, this morning she started having sharp 8 9/10 left lower quadrant abdominal pain. Initially she thought this was read no myosis pain but then the pain started radiating to the back. It was worsened with movement. No alleviating factors. Associated with nausea and dysuria. Denies any chest pain or shortness breath or vomiting, headache, dizziness, syncopal/syncopal episodes. She came to the ER. In the ER, she had a WBC count of 11.1. CT of the abdomen showed a 9 mm calculus in the proximal left ureter with mild to moderate left hydronephrosis. She received IV pain medication with fentanyl x2 and Toradol x1. At the time of my exam, she was alert oriented x3, in mild to moderate distress secondary to the pain she was hemodynamically stable. Allergies digoxin Allergy (Verified 12/23/18 20:40) Unknown levofloxacin [From Levaquin] Allergy (Verified 12/23/18 20:40) hallucinations Home Medications: 5Hydroxytryptophan(Oxitriptan) [5-Htp] 1 cap PO DAILY 12/23/18 Biotin 1 cap PO DAILY 12/23/18 Metoprolol Succinate [Toprol Xl] 1 tab PO BID 12/23/18 Vitamin B Complex [B Complex] 1 tab PO DAILY 12/23/18 traMADol HCL [Ultram*] 50 mg PO Q6H PRN #15 tab 12/24/18 - Past Medical/Surgical History Has patient received pneumonia vaccine in the past: No Diabetic: No -: Tachycardia -: Sinus arryhtmia; PACs -: Adenomyosis -: oral sx - Family History Mother -: Hypertension, Diabetes, Cancer, Other (see notes) Notes: thyroid cancer grandmother -: Other (see notes) Notes: thyroid removal - Social History Smoking Status: Former smoker Alcohol use: Yes CD- Drugs: No Caffeine use: Yes Place of Residence: Home Review of Systems 10-point ROS is otherwise unremarkable Physical Examination - Vital Signs Temperature: 97.9 F Blood Pressure: 121/57 Pulse: 76 Respirations: 20 Pulse Ox (%): 96 - Physical Exam General: Alert, In no apparent distress, Oriented x3 HEENT: Atraumatic, PERRLA, Mucous membr. moist/pink, EOMI, Sclerae nonicteric Neck: Supple, 2+ carotid pulse no bruit, No LAD, Without JVD or thyroid abnormality Respiratory: Clear to auscultation bilaterally, Normal air movement Cardiovascular: Regular rate/rhythm, Normal S1 S2 Gastrointestinal: Normal bowel sounds, No tenderness Musculoskeletal: No tenderness Integumentary: No rashes Neurological: Normal gait, Normal speech, Normal strength at 5/5 x4 extr, Normal tone, Normal affect Lymphatics: No axilla or inguinal lymphadenopathy - Studies Laboratory Data (last 24 hrs) 12/23/18 16:30: Creatinine 1.20 12/23/18 16:30: WBC 11.1 H, Hgb 13.4, Hct 40.4, Plt Count 203 12/23/18 16:30: Sodium 138, Potassium 3.7, BUN 21 H, Creatinine 1.19, Glucose 98 , Total Bilirubin 0.3, AST 23, ALT 30, Alkaline Phosphatase 65, Lipase 114 - Diagnosis (Problem(s)) (1) Left ureteral calculus Onset Date: 12/24/18 Current Visit: Yes Status: Acute (2) Hydronephrosis Onset Date: 12/24/18 Current Visit: Yes Status: Acute (3) Asymptomatic PVCs Onset Date: 12/24/18 Current Visit: Yes Status: Chronic (4) Uterus, adenomyosis Onset Date: 12/24/18 Current Visit: Yes Status: Chronic Treatment Summary: Patient was admitted for the future Toprol stone, with hydronephrosis. Dr. Nino, urology was consulted. Patient was kept NPO, she underwent a cystoscopy with left pyelogram and stent insertion. She tolerated the procedure well. Postop, she did well hemodynamically. In the morning, she did have some hematuria but her pain had vastly improved. She was cleared for discharge by urology. She was discharged home in a stable manner. She is to follow up with Dr. Nino in 1 week. - Disposition Disposition: ROUTINE DISCHARGE Condition: GOOD Consultations: Urology Patient Discharge Instructions: Please follow up with your PCP in 1 week. Please follow up with Dr. Nino in 1-2 weeks. Information provided to you. Please Return to the ER if symptoms worsen. Diet: Regular Activity: Ad albino Time Spent Managing Pts Care (In Minutes): 55
[2018-12-24 15:10] VITALS: BP 109/58; TEMP 97.5
== END 2018-12-24 13:03 | disposition home or self-care (01) ==
LOC: ER 15:30 → ERHOLD 18:01 → 2ND 19:57
PROVIDERS: ADMIT Family Medicine; ATTEND Family Medicine
PROC: 0T778DZ Dilation of Left Ureter with Intraluminal Device, Via Natural or Artificial Opening Endoscopic (ICD-10-PCS; principal; 2018-12-23 19:00)
DX: N13.2 Hydronephrosis with renal and ureteral calculous obstruction (principal); N80.0 Endometriosis of uterus; I49.3 Ventricular premature depolarization
CPT/HCPCS: 36415; 51610; 52332; 74018; 74176; 74450; 76377; 80048; 80053; 80076; 81003; 81025; 83690; 85025 ×2; 87086; 87088; 94760; 96361; 96374; 96375; 99285; G0378 ×2; J1170; J1580; J2270; J2405 ×2; J2704; J3010 ×2; J7030 ×2; Q9967; 81015

== ENCOUNTER 2019-01-17 14:42 | Emergency (ER) | payer OTHER ==
--- OUTSIDE RECORDS SUMMARY | 2019-01-17 14:45 | XMS REPORT ---
:1985 Author Organization [facility] Address [address] [place] [address] Dr. Marvin [address] [place] [id number] Care Team Providers Name Role Phone Unavailable Unavailable Unavailable Problems This patient has no known problems. Allergies, Adverse Reactions, Alerts This patient has no known allergies or adverse reactions. Medications This patient has no known medications.
--- NOTE | 2019-01-17 20:03 | RAD REPORT ---
EXAM DESCRIPTION: CT - Stone Protocol - 01/17/2019 7:48 pm CLINICAL HISTORY: Flank pain. groin pain, history of stones, recent hyst;Abd pain COMPARISON: Stone Protocol dated 12/23/2018; Urethrocystogrphy Retrograde dated 12/23/2018 TECHNIQUE: Axial images were obtained without oral or IV contrast. Lack of contrast limits solid org an and vascular assessment. The [id number] spans the entirety of the system partially obscuring uppermost abdomen and lung bases. Coronal reformatted images were obtained and reviewed. All CT scans are performed using dose optimization technique as appropriate and may include automated exposure control or mA/KV adjustment according to patient size. FINDINGS: The lower lung abbott are clear. Imaged portions of the liver and spleen show no suspicious findings on non-contrast imaging. The panc reas and adrenal glands are normal. No pathologic lymphadenopathy in the abdomen or pelvis. Tiny punctate calculus is seen in the inferior calyx left kidney. No additional renal calculi or hydr onephrosis. The urinary bladder is decompressed. No bowel obstruction, free air, free fluid or abscess. Normal appendix noted. No significant bony abnormality. IMPRESSION: No acute abnormality is discerned. Punctate left renal calculus without hydronephrosis.
[2019-01-17 20:36] LABS: Urine Blood 2+ (NEG); Urine Glucose NEGATIVE (NEG); Urine Protein NEGATIVE (NEG); Urine Specific Gravity 1.025 (1.005-1.030)
--- NOTE | 2019-01-17 20:45 | ER ---
Nurse's Notes [facility] Name: Niko Garcia Age: 34 yrs Sex: Female : 1985 Arrival Date: 01/17/2019 Time: 14:46 Bed 28 Private MD: Diagnosis: Abdominal and pelvic pain Presentation: 01/17 15:59 Presenting complaint: Patient states: Had partial hysterectomy on 4th, via vaginal ph route, sat up from supine position today and felt a sharp pain in L groin/suprapubic area, denies fever N/V, or vaginal bleeding. Transition of care: patient was not received from another setting of care. Onset of symptoms was January 17, 2019. Risk Assessment: Do you want to hurt yourself or someone else? Patient reports no desire to harm self or others. Initial Sepsis Screen: Does the patient meet any 2 criteria? No. Patient's initial sepsis screen is negative. Care prior to arrival: None. 15:59 Method Of Arrival: Wheelchair ph 15:59 Acuity: HENNY 3 ph 19:48 Initial Sepsis Screen: Does the patient have a suspected source of infection? No. rv Patient's initial sepsis screen is negative. Historical: - Allergies: 16:04 Digoxin; ph 16:04 Levaquin; ph - PMHx: 16:04 Adenomyosis; PACs; Tachycardia; ph - PSHx: 16:04 None; partial hysterectomy; ph - Immunization history:: Adult Immunizations unknown. - Social history:: Smoking status: unknown. - Ebola Screening: : Patient negative for fever greater than or equal to 101.5 degrees Fahrenheit, and additional compatible Ebola Virus Disease symptoms Patient denies exposure to infectious person Patient denies travel to an Ebola-affected area in the 21 days before illness onset. Screenin:48 Abuse screen: Denies threats or abuse. Denies injuries from another. Nutritional rv screening: No deficits noted. Tuberculosis screening: No symptoms or risk factors identified. Fall Risk None identified. Assessment: 19:47 General: Appears in no apparent distress. comfortable, Behavior is calm, cooperative. rv Pain: Complains of pain in abdomen. Neuro: Level of Consciousness is awake, alert, obeys commands, Oriented to person, place, time, situation. Cardiovascular: Capillary refill < 3 seconds. Respiratory: Airway is patent. GI: Bowel sounds present X 4 quads. Abd is soft and non tender X 4 quads. : No signs and/or symptoms were reported regarding the genitourinary system. EENT: No signs and/or symptoms were reported regarding the EENT system. Derm: Skin is intact. Musculoskeletal: No signs and/or symptoms reported regarding the musculoskeletal system. Vital Signs: 16:04 BP 105 / 66; Pulse 90; Resp 18; Temp 98.1; Pulse Ox 100% on R/A; Weight 66.68 kg; ph Height 5 ft. 4 in. (162.56 cm); Pain 6/10; 16:04 Body Mass Index 25.23 (66.68 kg, 162.56 cm) ph ED Course: 14:46 Patient arrived in ED. as 16:02 Triage completed. ph 16:04 Arm band placed on. ph 19:26 Louisa Mendoza FNP-C is [facility]. kb 19:26 Chapito Villanueva MD is Attending Physician. kb 19:[address] via wheelchair. 6 19:46 CT completed. Patient tolerated procedure well. Patient moved back from CT. 2 19:48 CT Stone Protocol In Process Unspecified. EDMS 19:49 Patient has correct armband on for positive identification. Placed in gown. Bed in low rv position. Call light in reach. Side rails up X 1. Adult w/ patient. Pulse ox on. NIBP on. 21:09 No provider procedures requiring assistance completed. Patient did not have IV access rv during this emergency room visit. Administered Medications: No medications were administered Outcome: 20:44 Discharge ordered by . kb 21:09 Discharged to home ambulatory. rv 21:09 Condition: good 21:09 Discharge instructions given to patient, Instructed on discharge instructions, follow up and referral plans. medication usage, Demonstrated understanding of instructions, follow-up care, medications, Prescriptions given X 1. 21:09 Patient left the ED. rv Signatures: Dispatcher [employer] EDNM Louisa Mendoza FNP-C FNP-Ckb Martinez, Amelia as Hall, Patricia, RN RN Gladis Varela [facility] Omar Rico RN RN Sera Reyes j
--- NOTE | 2019-01-17 20:45 | EDPHYS ---
Physician Documentation [facility] Name: Niko Garcia Age: 34 yrs Sex: Female : 1985 Arrival Date: 01/17/2019 Time: 14:46 Bed 28 Private MD: ED Physician Chapito Villanueva HPI: 01/17 20:42 This 34 yrs old Female presents to ER via Wheelchair with complaints of kb Abdominal Pain, Pelvic Pain. 20:42 The patient presents with abdominal pain left pelvic area. Onset: The symptoms/episode kb began/occurred yesterday. The symptoms do not radiate. Associated signs and symptoms: none. The symptoms are described as intermittent, sharp. Modifying factors: The symptoms are alleviated by remaining still, the symptoms are aggravated by movement, pressure. Severity of pain: At its worst the pain was moderate in the emergency department the pain is unchanged. The patient has not experienced similar symptoms in the past. The patient has not recently seen a physician. Historical: - Allergies: 16:04 Digoxin; ph 16:04 Levaquin; ph - PMHx: 16:04 Adenomyosis; PACs; Tachycardia; ph - PSHx: 16:04 None; partial hysterectomy; ph - Immunization history:: Adult Immunizations unknown. - Social history:: Smoking status: unknown. - Ebola Screening: : Patient negative for fever greater than or equal to 101.5 degrees Fahrenheit, and additional compatible Ebola Virus Disease symptoms Patient denies exposure to infectious person Patient denies travel to an Ebola-affected area in the 21 days before illness onset. ROS: 20:41 Constitutional: Negative for fever, chills, and weight loss, Cardiovascular: Negative kb for chest pain, palpitations, and edema, Respiratory: Negative for shortness of breath, cough, wheezing, and pleuritic chest pain, Back: Negative for injury and pain, MS/Extremity: Negative for injury and deformity, Skin: Negative for injury, rash, and discoloration, Neuro: Negative for headache, weakness, numbness, tingling, and seizure. 20:41 Abdomen/GI: Positive for abdominal pain, Negative for nausea, vomiting, and diarrhea. 20:42 : Positive for pelvic pain. kb Exam: 20:42 Constitutional: This is a well developed, well nourished patient who is awake, alert, kb and in no acute distress. Head/Face: Normocephalic, atraumatic. Chest/axilla: Normal chest wall appearance and motion. Nontender with no deformity. No lesions are appreciated. Cardiovascular: Regular rate and rhythm with a normal S1 and S2. No gallops, murmurs, or rubs. Normal PMI, no JVD. No pulse deficits. Respiratory: Lungs have equal breath sounds bilaterally, clear to auscultation and percussion. No rales, rhonchi or wheezes noted. No increased work of breathing, no retractions or nasal flaring. Skin: Warm, dry with normal turgor. Normal color with no rashes, no lesions, and no evidence of cellulitis. MS/ Extremity: Pulses equal, no cyanosis. Neurovascular intact. Full, normal range of motion. Neuro: Awake and alert, GCS 15, oriented to person, place, time, and situation. Cranial nerves II-XII grossly intact. Motor strength 5/5 in all extremities. Sensory grossly intact. Cerebellar exam normal. Normal gait. 20:42 Abdomen/GI: Inspection: abdomen appears normal, Bowel sounds: normal, in all quadrants, Palpation: soft, in all quadrants, moderate abdominal tenderness, in the left lower quadrant, left pelvic area. Vital Signs: 16:04 BP 105 / 66; Pulse 90; Resp 18; Temp 98.1; Pulse Ox 100% on R/A; Weight 66.68 kg; ph Height 5 ft. 4 in. (162.56 cm); Pain 6/10; 16:04 Body Mass Index 25.23 (66.68 kg, 162.56 cm) ph MDM: 19:26 Patient medically screened. kb 20:41 Data reviewed: vital signs, nurses notes. Data interpreted: Pulse oximetry: on room air kb is 100 %. Interpretation: normal. Counseling: I had a detailed discussion with the patient and/or guardian regarding: the historical points, exam findings, and any diagnostic results supporting the discharge/admit diagnosis, lab results, radiology results, the need for outpatient follow up, a family practitioner, to return to the emergency department if symptoms worsen or persist or if there are any questions or concerns that arise at home. 01/17 20:03 Order name: Urine Dipstick--Ancillary (enter results); Complete Time: 20:39 mw2 01/17 20:03 Order name: Urine --Ancillary (enter results); Complete Time: 20:39 mw2 01/17 19:27 Order name: Urine Dipstick-Ancillary (obtain specimen); Complete Time: 19:50 kb 01/17 19:31 Order name: CT Stone Protocol; Complete Time: 20:04 kb Administered Medications: No medications were administered Disposition: 01/17/19 20:44 Discharged to Home. Impression: Abdominal and pelvic pain. - Condition is Stable. - Discharge Instructions: Pelvic Pain, Female, [id number], Abdominal Pain, Adult, [id number]. - Prescriptions for Cyclobenzaprine 10 mg Oral Tablet - take 1 tablet by ORAL route every 8 hours As needed; 21 tablet. - Medication Reconciliation Form, Thank You Letter, Antibiotic Education, Prescription Opioid Use form. - Follow up: Emergency Department; When: As needed; Reason: Worsening of condition. Follow up: Private Physician; When: 2 - 3 days; Reason: Recheck today's complaints, Continuance of care, Re-evaluation by your physician. Addendum: 01/20/2019 19:34 Co-signature as Attending Physician, Chapito Villanueva MD. g s Signatures: Dispatcher [employer] EDMS Louisa Mendoza, STEAM TABLE ASSOCIATE-C STEAM TABLE ASSOCIATE-Bri Martinez RN RN Chapito Villanueva MD MD Omar Rico RN RN rv Corrections: (The following items were deleted from the chart) 01/17 20:42 20:41 Constitutional: Negative for fever, chills, and weight loss, Cardiovascular: kb Negative for chest pain, palpitations, and edema, Respiratory: Negative for shortness of breath, cough, wheezing, and pleuritic chest pain, Back: Negative for injury and pain, : Negative for injury, bleeding, discharge, and swelling, MS/Extremity: Negative for injury and deformity, Skin: Negative for injury, rash, and discoloration, Neuro: Negative for headache, weakness, numbness, tingling, and seizure, kb 21:09 20:44 01/17/2019 20:44 Discharged to Home. Impression: Abdominal and pelvic pain. rv Condition is Stable. Forms are Medication Reconciliation Form, Thank You Letter, Antibiotic Education, Prescription Opioid Use. Follow up: Emergency Department; When: As needed; Reason: Worsening of condition. Follow up: Private Physician; When: 2 - 3 days; Reason: Recheck today's complaints, Continuance of care, Re-evaluation by your physician. kb
[2019-01-17 23:06] VITALS: BP 105/66; TEMP 98.1; O2SAT 100
== END 2019-01-17 21:09 | disposition home or self-care (01) ==
LOC: ER 14:42
DX: R10.2 Pelvic and perineal pain (principal); Z88.1 Allergy status to other antibiotic agents; Z88.8 Allergy status to other drugs, medicaments and biological substances
CPT/HCPCS: 74176; 76377; 81003; 81025; 99284

== ENCOUNTER 2021-01-22 19:30 | Emergency (ER) | payer OTHER ==
--- OUTSIDE RECORDS SUMMARY | 2021-01-22 19:33 | XMS REPORT | Continuity of Care Document ---
:1985 Author Organization [facility] t Address [address] [place] [address] Dr. Marvin [address] [place] [id number] Care Team Providers Name Role Phone Unavailable Unavailable Unavailable Problems This patient has no known problems. Allergies, Adverse Reactions, Alerts This patient has no known allergies or adverse reactions. Medications This patient has no known medications. Procedures This patient has no known procedures. Results This patient has no known results.
[2021-01-22 22:11] LABS: Absolute Lymphocytes (CBC) 1.8 K/uL (0.7-4.9); Basophils % 0.6 % (0-1.3); Hematocrit 38.5 % (36.0-45.0); Lymphocytes % 26.9 % (15.3-44.8); MPV 8.1 fL (7.6-11.3); RBC Red Blood Cell Count 4.17 M/uL (3.86-4.86)
[2021-01-22] MEDS ORDERED: FAMOTIDINE 20 MG/2 ML VIAL IV ONE (22:33)
[2021-01-22] MEDS ORDERED: DICYCLOMINE HCL 10 MG CAP ONE (22:33)
[2021-01-22 22:48] LABS: ALT/SGPT 18 U/L (12-78); AST/SGOT 9 U/L (15-37); Albumin 3.7 g/dL (3.4-5.0); Alkaline Phosphatase 51 U/L (45-117); BUN Blood Urea Nitrogen 17 mg/dL (7-18); Bicarbonate 30 mmol/L (21-32); Bilirubin Direct < 0.1 mg/dL (0-0.2); Bilirubin Total 0.2 mg/dL (0.2-1.0); Glucose Level 83 mg/dL (74-106); Lipase 142 U/L (73-393); Potassium 3.7 mmol/L (3.5-5.1); Protein, Total 7.3 g/dL (6.4-8.2); Sodium Level 143 mmol/L (136-145)
--- NOTE | 2021-01-22 22:52 | EDPHYS ---
Physician Documentation [facility] Name: Niko Garcia Age: 36 yrs Sex: Female : 1985 Arrival Date: 01/22/2021 Time: 19:35 Bed 3 Private MD: ED Physician Brady Garces HPI: 01/22 22:47 This 36 yrs old Female presents to ER via Ambulatory with complaints of kb Abdominal Cramping, TIREDNESS. 22:47 The patient presents with abdominal pain in the upper abdomen. Onset: The kb symptoms/episode began/occurred yesterday. The symptoms do not radiate. Associated signs and symptoms: Pertinent positives: malaise, fatigue, Pertinent negatives: nausea, vomiting, and diarrhea, fever. The symptoms are described as crampy. Modifying factors: The symptoms are alleviated by nothing, the symptoms are aggravated by nothing. Severity of pain: At its worst the pain was moderate in the emergency department the pain is unchanged. The patient has not experienced similar symptoms in the past. The patient has not recently seen a physician. 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 - Social history:: Smoking status: Patient reports the use of cigarette tobacco products, denies chronic smoking, but will smoke occasionally. ROS: 22:45 Cardiovascular: Negative for chest pain, palpitations, and edema, Respiratory: Negative kb for shortness of breath, cough, wheezing, and pleuritic chest pain, MS/Extremity: Negative for injury and deformity, Skin: Negative for injury, rash, and discoloration, Neuro: Negative for headache, weakness, numbness, tingling, and seizure. 22:45 Constitutional: Positive for fatigue, malaise. 22:45 Abdomen/GI: Positive for abdominal cramps, Negative for nausea, vomiting, and diarrhea. Exam: 22:45 Constitutional: This is a well developed, well nourished patient who is awake, alert, kb and in no acute distress. Head/Face: Normocephalic, atraumatic. Respiratory: Respirations even and unlabored. No increased work of breathing, no retractions or nasal flaring. Abdomen/GI: Soft, non-tender. No distention Skin: Warm, dry with normal turgor. Normal color. MS/ Extremity: Pulses equal, no cyanosis. Neurovascular intact. Full, normal range of motion. Neuro: Awake and alert, GCS 15, oriented to person, place, time, and situation. Moves all extremities. Normal gait. Vital Signs: 19:38 BP 119 / 77; Pulse 90; Resp 16 S; Temp 97.8(TE); Pulse Ox 99% on R/A; Weight 62.6 kg ca1 (R); Height 5 ft. 4 in. (162.56 cm) (R); Pain 2/10; 23:15 BP 110 / 70; Pulse 88; Resp 18; Pulse Ox 98% ; ea 19:38 Body Mass Index 23.69 (62.60 kg, 162.56 cm) ca1 MDM: 21:25 Patient medically screened. kb 22:45 Data reviewed: vital signs, nurses notes. Data interpreted: Pulse oximetry: on room air kb is 99 %. Interpretation: normal. 22:51 Counseling: I had a detailed discussion with the patient and/or guardian regarding: the kb historical points, exam findings, and any diagnostic results supporting the discharge/admit diagnosis, lab results, the need for outpatient follow up, a family practitioner, to return to the emergency department if symptoms worsen or persist or if there are any questions or concerns that arise at home. 01/22 21:46 Order name: Basic Metabolic Panel; Complete Time: 22:50 kb 01/22 21:46 Order name: CBC with Diff; Complete Time: 22:41 kb 01/22 21:46 Order name: Hepatic Function; Complete Time: 22:50 kb 01/22 21:46 Order name: Lipase; Complete Time: 22:50 kb 01/22 21:46 Order name: IV Saline Lock; Complete Time: 22:07 kb 01/22 21:46 Order name: Labs collected and sent; Complete Time: 22:07 kb Administered Medications: 22:20 Drug: Pepcid 20 mg Route: IVP; Site: left antecubital; ea 23:10 Follow up: Response: No adverse reaction ea 22:21 Drug: Bentyl 20 mg Route: PO; ea 23:10 Follow up: Response: No adverse reaction ea Disposition: 01/23 07:15 Co-signature as Attending Physician, Brady Garces MD. [facility] Disposition: 01/22/21 22:51 Discharged to Home. Impression: Upper abdominal pain, unspecified. - Condition is Stable. - Discharge Instructions: Abdominal Pain, Adult, [id number]. - Prescriptions for Bentyl 20 mg Oral Tablet - take 1 tablet by ORAL route every 6 hours As needed; 20 tablet. Zofran 4 mg Oral Tablet - take 1 tablet by ORAL route every 6 hours As needed; 20 tablet. - Medication Reconciliation Form, Thank You Letter, Antibiotic Education, Prescription Opioid Use form. - Follow up: Emergency Department; When: As needed; Reason: Worsening of condition. Follow up: Private Physician; When: 2 - 3 days; Reason: Recheck today's complaints, Continuance of care, Re-evaluation by your physician. Signatures: Dispatcher [employer] EDMS Louisa Mendoza, JAI-C LEGAL BILLING ANALYST-Rupinder Nix RN RN ea Acob, Cheryl, RN RN ca1 Holmes, Maurice, MD MD [facility] Corrections: (The following items were deleted from the chart) 01/22 23:19 22:51 01/22/2021 22:51 Discharged to Home. Impression: Upper abdominal pain, ea unspecified. Condition is Stable. Forms are Medication Reconciliation Form, Thank You Letter, Antibiotic Education, Prescription Opioid Use. Follow up: Emergency Department; When: As needed; Reason: Worsening of condition. Follow up: Private Physician; When: 2 - 3 days; Reason: Recheck today's complaints, Continuance of care, Re-evaluation by your physician. kb
--- NOTE | 2021-01-22 22:52 | ER ---
Nurse's Notes [facility] Name: Niko Garcia Age: 36 yrs Sex: Female : 1985 Arrival Date: 01/22/2021 Time: 19:35 Bed 3 Private MD: Diagnosis: Upper abdominal pain, unspecified Presentation: 01/22 19:38 Chief complaint: Patient states: Upper abdominal cramps since yesterday, Intermittent. ca1 Reports feeling weak and tired. Denies N/V/D. Coronavirus screen: Client denies travel out of the [place] in the last 14 days. fatigue, Client presents with at least one sign or symptom that may indicate coronavirus-19. Standard/surgical mask placed on the client. Provider contacted for isolation considerations. Ebola Screen: Patient negative for fever greater than or equal to 101.5 degrees Fahrenheit, and additional compatible Ebola Virus Disease symptoms Patient denies exposure to infectious person. Patient denies travel to an Ebola-affected area in the 21 days before illness onset. No symptoms or risks identified at this time. Initial Sepsis Screen: Does the patient meet any 2 criteria? No. Patient's initial sepsis screen is negative. Does the patient have a suspected source of infection? No. Patient's initial sepsis screen is negative. Risk Assessment: Do you want to hurt yourself or someone else? Patient reports no desire to harm self or others. Onset of symptoms was January 22, 2021. 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 - Social history:: Smoking status: Patient reports the use of cigarette tobacco products, denies chronic smoking, but will smoke occasionally. Screenin:20 Abuse screen: Denies threats or abuse. Nutritional screening: No deficits noted. ea Tuberculosis screening: No symptoms or risk factors identified. Fall Risk IV access (20 points). Assessment: 22:08 Reassessment: Patient appears in no apparent distress at this time. Patient and/or sg family updated on plan of care and expected duration. Pain level reassessed. Patient is alert, oriented x 3, equal unlabored respirations, skin warm/dry/pink. 23:17 Reassessment: Patient and/or family updated on plan of care and expected duration. Pain ea level reassessed. Patient is alert, oriented x 3, equal unlabored respirations, skin warm/dry/pink. Discharge instruction given to patient verbalized the understanding of instruction. Pt left ED ambulatory tolerating well. Vital Signs: 19:38 BP 119 / 77; Pulse 90; Resp 16 S; Temp 97.8(TE); Pulse Ox 99% on R/A; Weight 62.6 kg ca1 (R); Height 5 ft. 4 in. (162.56 cm) (R); Pain 2/10; 23:15 BP 110 / 70; Pulse 88; Resp 18; Pulse Ox 98% ; ea 19:38 Body Mass Index 23.69 (62.60 kg, 162.56 cm) ca1 ED Course: 19:35 Patient arrived in ED. am4 19:41 Triage completed. ca1 19:41 Arm band placed on right wrist. ca1 20:56 [facility]-C [facility]. kb 20:56 Brady Garces MD is Attending Physician. kb 21:50 Missed attempt(s): 20 gauge in right antecubital area. Bleeding controlled, band aid sg applied, catheter tip intact. 21:52 Rupinder Robert, MULUGETA is Primary Nurse. ea 22:00 Initial lab(s) drawn, by vt, sent to lab. Inserted saline lock: 22 gauge in left sg antecubital area, using aseptic technique. Blood collected. 22:20 Patient has correct armband on for positive identification. Bed in low position. Call ea light in reach. Side rails up X 1. Pulse ox on. NIBP on. 23:18 No provider procedures requiring assistance completed. IV discontinued, intact, ea bleeding controlled, No redness/swelling at site. Pressure dressing applied. Administered Medications: 22:20 Drug: Pepcid 20 mg Route: IVP; Site: left antecubital; ea 23:10 Follow up: Response: No adverse reaction ea 22:21 Drug: Bentyl 20 mg Route: PO; ea 23:10 Follow up: Response: No adverse reaction ea Outcome: 22:51 Discharge ordered by . karel 23:18 Discharged to home ambulatory. gabriel 23:18 Condition: stable 23:18 Discharge instructions given to patient, Instructed on discharge instructions, follow up and referral plans. medication usage, Demonstrated understanding of instructions, follow-up care, medications, Prescriptions given X 2. 23:19 Patient left the ED. ea Signatures: Louisa Mendoza, NURSE EXAMINER-C NURSE EXAMINER-CkVincent Guallpa RN RN Rupinder Ortiz RN RN ea Acob, Cheryl RN RN Otilia Mendieta
[2021-01-22 23:36] VITALS: TEMP 97.8
[2021-01-22 23:41] VITALS: BP 110/70; O2SAT 98
== END 2021-01-22 23:19 | disposition home or self-care (01) ==
LOC: ER 19:30
DX: R10.10 Upper abdominal pain, unspecified (principal); F17.210 Nicotine dependence, cigarettes, uncomplicated; Z88.1 Allergy status to other antibiotic agents; Z88.8 Allergy status to other drugs, medicaments and biological substances
CPT/HCPCS: 36415; 80048; 80076; 83690; 85025; 96374; 99284